=== PATIENT | female | born 1940 | race Caucasian/White ===

== ENCOUNTER 2023-11-13 13:17 | Outpatient (AMB) | payer MEDICARE, SELFPAY ==
--- NOTE | 2023-11-13 13:18 | MHC.OFFVIS ---
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 Patient reports low back pain flare up after she recently completed brain and cervical MRI in September for brain pressure follow up and developed significant right sided low back pain with radiation into her mid back midline. Patient reports she felt unpleasant vibration sensation in her mid and lower spine during MRI testing. Patient has been taking Advil for pain but also tried prednisone, tramadol, and edible CBD with THC which affected her brain pressure with throbbing symptoms. Patient noted that edible CBD/THC allowed her to obtain 6 hours sleep and decrease in low back pain temporarily. Patient completed acupuncture without relief and also has been regularly seen by [facility] provider 2x/week who also provided laser therapy with minimal relief. She is also starting physical therapy tomorrow. Patient reports she underwent multiple treatments to relieve brain pressure in [place] and [place] including occipital nerve blocks, ozone therapy, laser therapy, blood patch, US temporal arteries and acupuncture without significant or sustained improvement. Denies any fever, chills, cognitive difficulties, weight loss, abdominal or groin pain, bladder or bowel dysfunction or saddle anesthesia. Reports bilateral lower extremity weakness. Patient utilizes wheelchair today but able to walk and ambulate with minimal assistance. Due to chronic brain pressure and low back pain, patient reports her daily activities and mobility are significantly affected. She states she can not enjoy gardening as much as she used to due to pain. She also reports history of multiple admissions and ER visits for chronic UTI due to Klebsiella infection. However, denies any UTI symptoms in the past 90 days due to sugar elimination from her diet and intermittent fasting. Oswestry low back disability score=29 (severe disability) Onset: 09/12/23 Location: Lower back pain, on and off worsening since undergoing MRI on 09/11/23 Duration: Acute on chronic pain, worsening for past 2 months Characteristics of symptom or complaint: Aching, getting up at night, walking, movements Aggravating or associated factors: Any movement, sitting, walking, bending, lifting, coughing, climbing stairs Relieving factors: Resting, walking, ice pack, Advil, Tylenol, tramadol Treatment: PT, acupunture, chiropractic adjustments, wheelchair, walker, back brace [facility] Medical History (Updated 11/13/23 @ 20:41 by EBENEZER Petty) Osteopenia Compression fracture of L2 Low back pain Hyperlipidemia GERD (gastroesophageal reflux disease) Lyme disease Surgical History (Updated 11/13/23 @ 20:33 by EBENEZER Petty) History of hand surgery (~07/16/13) H/O section Hx of fusion of cervical spine Review of Systems Const All systems reviewed & are unremarkable except as noted in HPI and below Reports as per HPI, Denies body aches, Denies chills, Reports difficulty sleeping, Reports fatigue, Denies fever(s), Reports headache(s), Denies malaise, Denies night sweats, Denies stops breathing during sleep, Reports weakness and Denies weight loss ENT Reports headache(s) Neuro Reports headache(s) and Reports weakness Endo Reports fatigue Physical Exam Vital Signs: Last Vital Signs Pulse 80 11/13/23 13:21 BP 143/65 H 11/13/23 13:21 Pulse Ox 97 11/13/23 13:21 Oxygen Delivery Method Room Air 11/13/23 13:21 BMI result Body Mass Index 26.2 General: Appears afebrile. Alert and oriented. Mood and affect appropriate. Follows and participates in conversation appropriately. Respiratory effort is unlabored. No cough. Able to transition from sit to stand unassisted. Patient presents in a wheelchair. She is able to ambulate with steady gait with minimal assistance. Reports chronic bilateral lower extremity weakness. Neck Neck: Yes normal visual inspection, Yes no lymphadenopathy, Yes no JVD and No prominent dorsocervical fat pad General: Yes no CVA tenderness Back/Spine/Pelvis Other: Antalgic gait. No limping. Limited lumbar ROM due to pain. Lumbar extension and flexion reproduces moderate symptoms, worse with lumbar extension and axial rotation. No midline tenderness to palpation in the thoracic or lumbar spine. Demonstrates 4/5 strength of quadriceps bilaterally as well as flexion/dorsiflexion of bilateral feet against resistance. 2+ pedal pulses bilaterally. Seated straight leg rise with dorsiflexion negative bilaterally. Diminished patellar and achilles reflexes bilaterally. Facet loading test positive bilaterally. Karla sign, Wayne?s, Pelvic compression and Stinchfield tests are positive on the right side. No tenderness in the GTB bilaterally. No groin pain with I/E hip rotations. Valsalva maneuver negative. Back: no CVA tenderness Cervical Spine: cervical muscular tenderness, pain with cervical ROM, Cervical spine scars present (anterior), No Cervical spine tenderness and No step off deformity Thoracic/Lumbar Spine: thoracic and lumbar spine normal to inspection, Lasegue's sign negative, straight leg raise negative bilaterally, kyphosis, pain with thoraco-lumbar ROM, No paraspinal muscle tenderness, thoraco-lumbar ROM limited, No thoracic spinal tenderness and lumbar spinal tenderness (L4-S1) Pelvis: buttock tenderness on the right and no sciatic notch tenderness Sacroiliac joints: on the right tender to palpation and on the left nontender Extrem General: Yes capillary refill normal, Yes no clubbing, cyanosis or edema and Yes no calf tenderness Results Reviewed Results Reviewed: Thoracic spine 3V on 10/03/2023 at [facility] FINDINGS: No bone lesions or fractures. Mild thoracic kyphosis with multilevel osteophyte formation as well as anterior longitudinal ligament calcification. Normal soft tissue. IMPRESSION: Thoracic kyphosis with degenerative changes. No compression fractures or other acute findings. Assessment & Plan Assessment & Plan (1) Low back pain: Code(s): M54.50 - Low back pain, unspecified Category: Medical (2) Lumbosacral spondylosis: Code(s): M47.817 - Spondylosis without myelopathy or radiculopathy, lumbosacral region Category: Medical (3) Sacroiliac joint pain: Code(s): M53.3 - Sacrococcygeal disorders, not elsewhere classified Category: Medical (4) Post-Lyme disease syndrome: Code(s): B94.8 - Sequelae of other specified infectious and parasitic diseases Category: Medical (5) Thoracic kyphosis: Code(s): M40.204 - Unspecified kyphosis, thoracic region Category: Medical Plan Patient presents with axial low back pain and right-sided sacroiliac joint pain. Will obtain flexion-extension views of lumbar spine with sacroiliac joint x-ray prior to any interventional treatments. Briefly discussed treatment options for both pain generators, including diagnostic versus therapeutic injections, peripheral nerve stimulation, and radiofrequency ablation. Patient has osteopenia, old L2 compression fracture and reports poor tolerance with steroids which affects her brain pressure symptoms, therefore we will avoid therapeutic injections. Patient is starting physical therapy tomorrow and is encouraged to establish a home exercise program after PT. Avoid pain producing activities of movements. Alternate ice with heat therapy as needed for low back pain. Continue to follow-up with Neurology to further evaluate chronic brain pressure with throbbing sensations all over the head. All questions and concerns have been answered and patient agreed is the treatment plan. Follow-up for x-ray review and sooner as needed. Orders: Orders XR sacroiliac joint min 3V Today M47.817 - Spondylosis without myelopathy or radiculopathy, lumbosacral region, M53.3 - Sacrococcygeal disorders, not elsewhere classified, M54.50 - Low back pain, unspecified XR lumbar spine 4V min Today M47.817 - Spondylosis without myelopathy or radiculopathy, lumbosacral region, M54.50 - Low back pain, unspecified Coding Level of Care Code New Pt Level 4 (85723) Diagnoses Low back pain M54.50 Lumbosacral spondylosis M47.817 Sacroiliac joint pain M53.3 Post-Lyme disease syndrome B94.8 Thoracic kyphosis M40.204
[2023-11-13 13:21] VITALS: BP 143/65; PULSE 80; O2SAT 97; BMI 26.2
== END 2023-11-13 14:25 | disposition home or self-care (01) ==
PROVIDERS: PCP Internal Medicine; Visit Provider Nurse Practitioner Family
DX: M54.50 Low back pain, unspecified (principal); M47.817 Spondylosis without myelopathy or radiculopathy, lumbosacral region; M53.3 Sacrococcygeal disorders, not elsewhere classified; B94.8 Sequelae of other specified infectious and parasitic diseases; M40.204 Unspecified kyphosis, thoracic region
CPT/HCPCS: 99203

== ENCOUNTER 2023-11-13 13:17 | Outpatient (REF) | payer MEDICARE, SELFPAY ==
--- NOTE | ~2023-11-13 | XR_ITS ---
EXAMINATION: XR LUMBOSACRAL SPINE WITH OBLIQUES CLINICAL INFORMATION: Spondylosis without myelopathy or radiculopathy Patient states severe lower back pain, no known injury COMPARISON: None available. TECHNIQUE: AP, both oblique, and lateral views of the lumbar spine. Lateral view of the lumbosacral junction. FINDINGS: There is straightening of the usual lumbar lordosis which can be seen with muscle spasm. There 5 nonrib-bearing lumbar-type vertebral bodies. There is mild compression of the superior endplate of L2. There is moderate compression of the T12 vertebral body. There is no significant disc space narrowing. There is L5 spondylolysis with grade 1 anterolisthesis of L5 with respect to S1. There is multilevel degenerative facet joint disease, most marked at L5-S1. There is calcification of the abdominal aorta without evidence of aneurysmal dilatation. XR/XR lumbar spine 4V min IMPRESSION: 1. Muscle spasm. 2. L5 spondylolysis with grade 1 anterolisthesis of L5 with respect to S1. 3. Moderate compression of the T12 vertebral body, of unknown chronicity. 4. Mild compression of the superior endplate of L2, of unknown chronicity. 5. Multilevel degenerative facet joint disease.
--- NOTE | ~2023-11-13 | XR_ITS ---
EXAMINATION: XR SACROILIAC JOINTS CLINICAL INFORMATION: Sacral coccygeal disorders, not elsewhere classified Patient states severe lower back pain, no known injury COMPARISON: Same-day lumbar spine TECHNIQUE: 3 views of the sacroiliac joints FINDINGS: The bones are intact. No fracture. Alignment is anatomic. Sacroiliac joint spaces are well-maintained without erosions or surrounding sclerosis. 2.5 cm popcorn-like calcification in the left side of the pelvis likely represents a calcified fibroid. There is calcification of the abdominal aorta and common iliac arteries. XR/XR sacroiliac joint min 3V IMPRESSION: 1. Normal sacroiliac joints. 2. Probable calcified fibroid.
== END 2023-11-13 13:18 | disposition home or self-care (01) ==
LOC: HO.XRAY 13:17
PROVIDERS: PCP Internal Medicine; Visit Provider Nurse Practitioner Family
DX: M53.3 Sacrococcygeal disorders, not elsewhere classified (principal); M54.50 Low back pain, unspecified; M47.817 Spondylosis without myelopathy or radiculopathy, lumbosacral region; M40.204 Unspecified kyphosis, thoracic region; B94.8 Sequelae of other specified infectious and parasitic diseases
CPT/HCPCS: 72110; 72202; 99202

== ENCOUNTER 2023-11-20 09:58 | Outpatient (AMB) | payer MEDICARE, SELFPAY ==
--- NOTE | 2023-11-20 09:58 | MHC.OFFVIS ---
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 She continues to endorse low back pain that she reports has shifted from right side to the midline and towards her mid back after recent PT session. Recent xray showed moderate compression of the T12 vertebral body, which is new since thoracic xray on 10/03/23. Patient reports her repeat bone scan is due next week and previous one in 2020. She is interested to undergo thoracic MRI for potential kyphoplasty but hesitant towards any interventions at this time. Patient denies any recent injury, trauma or falls. She has been treating her symptoms with Advil and reports she has back brace at home but does not use it as much. 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 Patient reports low back pain flare up after she recently completed brain and cervical MRI in September for brain pressure follow up and developed significant right sided low back pain with radiation into her mid back midline. Patient reports she felt unpleasant vibration sensation in her mid and lower spine during MRI testing. Patient has been taking Advil for pain but also tried prednisone, tramadol, and edible CBD with THC which affected her brain pressure with throbbing symptoms. Patient noted that edible CBD/THC allowed her to obtain 6 hours sleep and decrease in low back pain temporarily. Patient completed acupuncture without relief and also has been regularly seen by [facility] provider 2x/week who also provided laser therapy with minimal relief. She is also starting physical therapy tomorrow. Patient reports she underwent multiple treatments to relieve brain pressure in [place] and [place] including occipital nerve blocks, ozone therapy, laser therapy, blood patch, US temporal arteries and acupuncture without significant or sustained improvement. Denies any fever, chills, cognitive difficulties, weight loss, abdominal or groin pain, bladder or bowel dysfunction or saddle anesthesia. Reports bilateral lower extremity weakness. Patient utilizes wheelchair today but able to walk and ambulate with minimal assistance. Due to chronic brain pressure and low back pain, patient reports her daily activities and mobility are significantly affected. She states she can not enjoy gardening as much as she used to due to pain. She also reports history of multiple admissions and ER visits for chronic UTI due to Klebsiella infection. However, denies any UTI symptoms in the past 90 days due to sugar elimination from her diet and intermittent fasting. Oswestry low back disability score=29 (severe disability) Onset: 09/12/23 Location: Lower back pain, on and off worsening since undergoing MRI on 09/11/23 Duration: Acute on chronic pain, worsening for past 2 months Characteristics of symptom or complaint: Aching, getting up at night, walking, movements Aggravating or associated factors: Any movement, sitting, walking, bending, lifting, coughing, climbing stairs Relieving factors: Resting, walking, ice pack, Advil, Tylenol, tramadol Treatment: PT, acupunture, chiropractic adjustments, wheelchair, walker, back brace [facility] Medical History (Updated 11/20/23 @ 10:36 by EBENEZER Petty) Osteopenia Compression fracture of L2 Low back pain Hyperlipidemia GERD (gastroesophageal reflux disease) Lyme disease Surgical History (Updated 11/13/23 @ 20:33 by EBENEZER Petty) History of hand surgery (~07/16/13) H/O section Hx of fusion of cervical spine Review of Systems Const All systems reviewed & are unremarkable except as noted in HPI and below ENT Reports Normal hearing present Neuro Reports Normal hearing present and Denies confusion Psych Denies confusion Physical Exam Vital Signs: BMI result Body Mass Index 26.5 Const General: cooperative, alert and awake; No confusion Orientation/consciousness: patient oriented x3 and No confusion Resp Effort & Inspection: able to speak in complete sentences, no audible wheezes and no cough Neuro General: patient oriented x3 and No confusion Cranial nerves: Yes Normal hearing present Cognition (Neuro): normal cognition Psych Mental Status: mental status grossly normal Speech and movement: Clear speech present Affect: normal affect Attitude: cooperative Thought process: Normal thought process present Thought content: Normal thought content present and No Depressive thoughts present Insight: Good insight present (Psych) Judgement: Good judgement present (Psych) Telehealth Telehealth Telehealth Platform: Telephone Location of provider rendering services: practice address Location of patient: address on file Patient Identification confirmed using: Name, : Yes Telehealth method: voice only Patient verbally consented to treatment: Yes Patient verbally consented to billing insurance company: Yes Patient informed of any privacy concerns related to visit: Yes Minutes spent on Phone/Video with Pt.: 24 Results Reviewed Results Reviewed: XR LUMBOSACRAL SPINE WITH OBLIQUES 11/13/23 CLINICAL INFORMATION: Spondylosis without myelopathy or radiculopathy Patient states severe lower back pain, no known injury FINDINGS: There is straightening of the usual lumbar lordosis which can be seen with muscle spasm. There 5 nonrib-bearing lumbar-type vertebral bodies. There is mild compression of the superior endplate of L2. There is moderate compression of the T12 vertebral body. There is no significant disc space narrowing. There is L5 spondylolysis with grade 1 anterolisthesis of L5 with respect to S1. There is multilevel degenerative facet joint disease, most marked at L5-S1. There is calcification of the abdominal aorta without evidence of aneurysmal dilatation. IMPRESSION: 1. Muscle spasm. 2. L5 spondylolysis with grade 1 anterolisthesis of L5 with respect to S1. 3. Moderate compression of the T12 vertebral body, of unknown chronicity. 4. Mild compression of the superior endplate of L2, of unknown chronicity. 5. Multilevel degenerative facet joint disease. XR SACROILIAC JOINTS 11/12/22 CLINICAL INFORMATION: Sacral coccygeal disorders, not elsewhere classified Patient states severe lower back pain, no known injury FINDINGS: The bones are intact. No fracture. Alignment is anatomic. Sacroiliac joint spaces are well-maintained without erosions or surrounding sclerosis. 2.5 cm popcorn-like calcification in the left side of the pelvis likely represents a calcified fibroid. There is calcification of the abdominal aorta and common iliac arteries. IMPRESSION: 1. Normal sacroiliac joints. 2. Probable calcified fibroid. [place]acic spine [place] [facility] [place]INDINGS: No bone lesions or fractures. Mild thoracic kyphosis with multilevel osteophyte formation as well as anterior longitudinal ligament calcification. Normal soft tissue. IMPRESSION: Thoracic kyphosis with degenerative changes. No compression fractures or other acute findings. Assessment & Plan Assessment & Plan (1) Thoracic kyphosis: Code(s): M40.204 - Unspecified kyphosis, thoracic region Category: Medical (2) Osteopenia: Code(s): M85.80 - Other specified disorders of bone density and structure, unspecified site Category: Medical (3) Sacroiliac joint pain: Code(s): M53.3 - Sacrococcygeal disorders, not elsewhere classified Category: Medical (4) Low back pain: Code(s): M54.50 - Low back pain, unspecified Category: Medical (5) Lumbosacral spondylosis: Code(s): M47.817 - Spondylosis without myelopathy or radiculopathy, lumbosacral region Category: Medical (6) Compression fracture of T12 vertebra: Code(s): S22.080A - Wedge compression fracture of T11-T12 vertebra, initial encounter for closed fracture Category: Medical (7) Mid-back pain, acute: Code(s): M54.9 - Dorsalgia, unspecified Category: Medical (8) Compression fracture of L2: Code(s): S32.020A - Wedge compression fracture of second lumbar vertebra, initial encounter for closed fracture Category: Medical Plan Lumbar spine and SIJ xray results were discussed with patient. Will proceed with thoracic MRI for potential kyphoplasty at T12 to address patient's midline mid-low back pain. She requests [place] to be [place] [facility] Patient is also due for repeat bone scan [place] [facility] and will update us with results. Continue PT as tolerated. Avoid pain producing movements and activities. All questions and concerns have been answered and patient agreed with the plan. Follow up for MRI results and sooner as needed. I hereby testify that I spent 24 minutes in conversation with this patient as well as with planning and coordinating care for this patient and organizing this note. Orders: Orders MR thoracic spine wo con Today M40.204 - Unspecified kyphosis, thoracic region, M47.817 - Spondylosis without myelopathy or radiculopathy, lumbosacral region, M54.9 - Dorsalgia, unspecified, M85.80 - Other specified disorders of bone density and structure, unspecified site, S22.080A - Wedge compression fracture of T11-T12 vertebra, initial encounter for closed fracture, S32.020A - Wedge compression fracture of second lumbar vertebra, initial encounter for closed fracture Coding Level of Care Code Tele Est Pt Level 4 (41406) Diagnoses Thoracic kyphosis M40.204 Osteopenia M85.80 Sacroiliac joint pain M53.3 Low back pain M54.50 Lumbosacral spondylosis M47.817 Compression fracture of T12 vertebra S22.080A Mid-back pain, acute M54.9 Compression fracture of L2 S32.020A
[2023-11-20 09:59] VITALS: BMI 26.5
== END 2023-11-20 10:20 | disposition home or self-care (01) ==
LOC: HO.PMC 09:58
PROVIDERS: PCP Internal Medicine; Visit Provider Nurse Practitioner Family
DX: M40.204 Unspecified kyphosis, thoracic region (principal); M85.80 Other specified disorders of bone density and structure, unspecified site; M53.3 Sacrococcygeal disorders, not elsewhere classified; M54.50 Low back pain, unspecified; M47.817 Spondylosis without myelopathy or radiculopathy, lumbosacral region; S22.080A Wedge compression fracture of T11-T12 vertebra, initial encounter for closed fracture; M54.9 Dorsalgia, unspecified; S32.020A Wedge compression fracture of second lumbar vertebra, initial encounter for closed fracture
CPT/HCPCS: 99443

== ENCOUNTER → 2023-11-20 09:58 | Outpatient (BNVA) | payer MEDICARE, SELFPAY | PROVIDERS: PCP Internal Medicine; Visit Provider Nurse Practitioner Family ==